=== PATIENT | female | born 1980 | race Hispanic/Latino ===

== ENCOUNTER 2016-11-26 21:25 | Emergency (ER) | payer OTHER, SELFPAY ==
[2016-11-26 21:25] VITALS: BMI 22.4
[2016-11-26 21:34] VITALS: BP 111/74; PULSE 87; RESP 16; TEMP 97.9; O2SAT 99
--- NOTE | 2016-11-26 21:52 | C.PDOC ---
History Of Present Illness 35 y/o female 10 weeks presents to ED with complaints of rhinorrhea, congestion and subjective fever since yesterday. Pt is unsure of what medication she can take since she is . Pt denies cough, SOB, vomiting, diarrhea, abdominal pain, or any other complaints. Time Seen by Provider: 11/26/16 21:45 Chief Complaint (Nursing): Cough, Cold, Congestion History Per: Patient History/Exam Limitations: no limitations Onset/Duration Of Symptoms: Hrs, Waxing/Waning Associated Symptoms: Fever, Nasal Congestion. denies: Cough, Vomiting, Diarrhea Severity: Mild Recent travel outside of the [place]: No Past Medical History Reviewed: Historical Data, Nursing Documentation, Vital Signs Vital Signs: Last Vital Signs Temp 97.9 F 11/26/16 21:30 Pulse 87 11/26/16 21:30 Resp 16 11/26/16 21:30 BP 111/74 11/26/16 21:30 Pulse Ox 99 11/26/16 21:56 - Medical History PMH: No Chronic Diseases Surgical History: No Surg Hx Family History: States: Unknown Family Hx - Social History Hx Alcohol Use: No Hx Substance Use: No - Immunization History Hx Tetanus Toxoid Vaccination: No Hx Influenza Vaccination: No Hx Pneumococcal Vaccination: No Review Of Systems Constitutional: Positive for: Fever ENT: Positive for: Nose Discharge, Nose Congestion Respiratory: Negative for: Cough, Shortness of Breath Gastrointestinal: Negative for: Vomiting, Abdominal Pain, Diarrhea Genitourinary: Negative for: Dysuria, Vaginal Bleeding Skin: Negative for: Rash, Bruising Neurological: Negative for: Headache Physical Exam - Physical Exam Appears: Non-toxic, No Acute Distress Skin: Warm, Dry, No Rash Head: Atraumatic, Normacephalic Eye(s): bilateral: Normal Inspection, EOMI Ear(s): Bilateral: Normal Nose: Normal Oral Mucosa: Moist Throat: Normal, No Erythema, No Exudate Neck: Normal, Normal ROM, Supple Chest: Symmetrical Cardiovascular: Rhythm Regular Respiratory: Normal Breath Sounds, No Rales, No Rhonchi, No Wheezing Extremity: Bilateral: Atraumatic, Normal ROM Neurological/Psych: Oriented x3, Normal Speech Gait: Steady ED Course And Treatment O2 Sat by Pulse Oximetry: 99 (room air) Pulse Ox Interpretation: Normal Medical Decision Making Medical Decision Makin35 year old female with complaints of subjective fever and congestion since yesterday. Exam was benign and unremarkable. Recommend decongestant and Tylenol which are safe in . Patient feels comfortable going home and will be discharged. Disposition Counseled Patient/Family Regarding: Need For Followup, Rx Given - Disposition Disposition: HOME/ ROUTINE Disposition Time: 21:50 Condition: STABLE Additional Instructions: You have viral illness which will take couple days to resolve May take Tylenol for any fever Take Claritin or Benadryl for any congestion Prescriptions: Acetaminophen [Tylenol Extra Strength] 500 mg PO Q8 #30 tablet Loratadine [Claritin] 10 mg PO DAILY #30 tab Instructions: Upper Respiratory Infection (ED) Forms: [employer] (Sami) - POA Present On Arrival: None - Clinical Impression Clinical Impression: Viral disease, Upper respiratory infection - PA / LINE PULLER / Resident Statement MD/DO has reviewed & agrees with the documentation as recorded. - Scribe Statement The provider has reviewed the documentation as recorded by the Nazanin Contreras All medical record entries made by the Scribe were at my direction and personally dictated by me. I have reviewed the chart and agree that the record accurately reflects my personal performance of the history, physical exam, medical decision making, and the department course for this patient. I have also personally directed, reviewed, and agree with the discharge instructions and disposition.
== END 2016-11-26 22:24 | disposition home or self-care (01) ==
LOC: C.ER 21:25
DX: J06.9 Acute upper respiratory infection, unspecified (principal); O99.511 Diseases of the respiratory system complicating pregnancy, first trimester; Z3A.10 10 weeks gestation of pregnancy

== ENCOUNTER 2017-04-21 12:56 | Emergency (ER) | payer MEDICAID, OTHER, SELFPAY ==
[2017-04-21] MEDS ORDERED: Betamethasone Soluspan 30 mg/5mL Inj Susp IM ONE (13:27)
--- NOTE | 2017-04-21 13:45 | OBHP ---
Datetime: 04/21/2017 13:41 IP Adm Impression: , intrauterine IP Chief Complaint Other: sent in by pmd short cerivx 0.7cm for steroids Admit Comment, IP Provider: 36 y/o @ 31.5 wks GA by LMP 09/11/16 DOUG 06/18/17 sent by PMD found t o have short cerrvix on US .7cm adn referred by pmd for steriods. pt dneis any pain, cramping bleedin g, leaking, bowel or bladder complaints, vb, lof, +FM Ante: PNC Dr. Howell OB: P0 HHA: denies hx of having pap, denies hx of fibroids, ovarian cyst, STI PMH: Denies PSH: Denies SHX: negative etoh/tobacco/drugs MEDS: pt reprts was on progestone sppostory but stopped using them, pnv ALLERYG: PCN A/P @ 31.5 wks GA with short cervix -f/u UA -NST -Celestone x 1 today, tomorrow for #2, pt ifnormed Plan as per PMD Dr Howell Extremities - PN: Normal Abdomen - PN: Normal Back - PN: Normal Breast - PN: Normal Lungs - PN: Normal Heart - PN: Normal Thyroid - PN: Not Done HEENT - PN: Normal General - PN: Normal FHR - Baseline A Provider: 125 Membranes, Provider: Intact Contraction Comments Provider: none Comments, ACOG Physical Exam: no palpable ctx no bulging memmbrnaes Gestation - Est Wks by US: 31.5 EGA AdmitDate IP: 31.5 IP Chief Complaint: Other NICHD Variability Prov Fetus A: Moderate 6-25bpm FHR Category Provider Fetus A: Category I NICHD Decel Fetus A IP Provider: None Dilatation, Provider: 0 Genitourinary Exam: Normal DTRs - PN: Normal
[2017-04-21 14:27] LABS: RBC URINE 1 /hpf (0-3); URINE BACTERIA RARE (<OCC); URINE BILIRUBIN NEGATIVE (NEGATIVE); URINE BLOOD NEGATIVE (NEGATIVE); URINE COLOR Yellow (YELLOW); URINE GLUCOSE (UA) NORMAL (Normal); URINE KETONE NEGATIVE (NEGATIVE); URINE LEUKOCYTE ESTERASE 3+ Leu/uL (Negative); URINE PROTEIN NEGATIVE (NEGATIVE); URINE UROBILINOGEN NORMAL mg/dL (0.2-1.0); WBC URINE 20 /hpf (0-5)
[2017-04-21 19:14] VITALS: BP 102/63; PULSE 83; TEMP 98.2; O2SAT 99
== END 2017-04-21 14:50 | disposition home or self-care (01) ==
LOC: C.EROB 12:56
DX: O26.893 Other specified pregnancy related conditions, third trimester (principal); Z3A.31 31 weeks gestation of pregnancy
CPT/HCPCS: 81001; 96372; 99283; J0702

== ENCOUNTER 2017-04-22 13:55 | Emergency (ER) | payer OTHER ==
[2017-04-22 14:32] VITALS: BMI 23.9
[2017-04-22] MEDS ORDERED: Betamethasone Soluspan 30 mg/5mL Inj Susp IM ONE (14:32)
--- NOTE | 2017-04-22 15:43 | OBHP ---
Datetime: 04/22/2017 14:35 IP Adm Impression: , intrauterine IP Chief Complaint Other: Celestone #2 IP Adm Impression Other: Shortened cervix. IP Admit Plan: Discharge home Admit Comment, IP Provider: 36 y.o. , LMP 09/11/16, ED 06/18/17, EGA 31s 6d here for second dose of celestone due to shortened cervix 0.7 cm. (+) AFM; denies LOF, VB, Ctx. Not sexuall active x "tue".. care: Dr. 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 x 3 years. Woks in [employer]. - sits most of the day Fam Hx: mother alive 62 - no med ssues. Father alive 62y.o. HTN. Assessment: 36 y.o. P0, 31w 6d, shortened cervix, completing course of steroids. Category 1 lalo ng. Clinically stable. Plan: 1) Continue present management 2) Anticipate vaginal delivery Pelvic Type - PN: Not Done Extremities - PN: Normal Abdomen - PN: Normal Back - PN: Normal Breast - PN: Not Done Lungs - PN: Normal Heart - PN: Normal Thyroid - PN: Not Done Neurologic - PN: Normal HEENT - PN: Normal General - PN: Normal FHR - Baseline A Provider: 130 Contraction Comments Provider: none Gestation - Est Wks by US: 31w 6d EGA AdmitDate IP: 31.6 Vital Signs Provider: Reviewed; Within Normal Limits IP Chief Complaint: Other NICHD Variability Prov Fetus A: Moderate 6-25bpm NICHD Accel Fetus A IP Provider: 15X15 FHR Category Provider Fetus A: Category I NICHD Decel Fetus A IP Provider: None Dilatation, Provider: deferred Genitourinary Exam: Not Done DTRs - PN: Not Done
[2017-04-22 19:49] VITALS: BP 97/61; PULSE 92; TEMP 98.4
== END 2017-04-22 15:05 | disposition home or self-care (01) ==
LOC: C.EROB 13:55
DX: O26.893 Other specified pregnancy related conditions, third trimester (principal); Z3A.31 31 weeks gestation of pregnancy
CPT/HCPCS: 96372; 99283; J0702

== ENCOUNTER 2017-06-02 07:26 | Inpatient (IN) | payer MEDICAID, OTHER ==
[2017-06-02] MEDS ORDERED: Sodium Citrate/Citric Acid 15 ml Sol PO ONE (07:58)
[2017-06-02 07:59] VITALS: BMI 24.4
[2017-06-02] MEDS ORDERED: Lactated Ringer's 1,000 ML IV SCH ×3 (08:00→12:30)
[2017-06-02 08:26] LABS: BASO % 0.2 % (0.0-2.0); EOS # 0.1 K/uL (0.0-0.7); EOS % 1.1 % (0.0-4.0); HEMOGLOBIN 11.9 g/dL (11.0-16.0); LYMPH # 1.5 K/uL (1.0-4.3); LYMPH % 17.3 % (20.0-40.0); MEAN CORPUSCULAR HEMOGLOBIN 29.1 pg (27.0-31.0); MONO # 0.7 K/uL (0.0-0.8); MONO % 7.6 % (0.0-10.0); NEUT # 6.4 K/uL (1.8-7.0); NEUT % 73.8 % (50.0-75.0); RBC 4.11 Mil/uL (3.80-5.20); RED CELL DISTRIBUTION WIDTH 14.6 % (11.5-14.5)
[2017-06-02 08:28] LABS: MEAN CELL VOLUME 83.1 fL (81.0-99.0); WHITE BLOOD COUNT 8.7 K/uL (4.8-10.8)
[2017-06-02] MEDS ORDERED: Morphine 1 mg/ml preservative-free Inj(Duramorph) ONE (08:35)
[2017-06-02 08:42] LABS: ALB/GLOB RATIO 1.2 (1.0-2.1); ALBUMIN 3.2 g/dL (3.5-5.0); ALT/SGPT 19 U/L (9-52); AST/SGOT 20 U/L (14-36); BLOOD UREA NITROGEN 5 mg/dL (7-17); CALCIUM 8.6 mg/dl (8.6-10.4); GFR AFRICAN-AMERICAN > 60; GFR NON-AFRICAN AMERICAN > 60
[2017-06-02] MEDS ORDERED: Clindamycin 600mg/50ml D5W 600 MG/50 ML VIAL IVPB SCH (09:00)
[2017-06-02] MEDS ORDERED: Sodium Citrate/Citric Acid 15 ml Sol ONE (09:47)
[2017-06-02] MEDS: Clindamycin 600mg/50ml NS 600 MG/50 ML BAG IVPB SCH ×3 (09:51→21:05)
--- NOTE | 2017-06-02 12:06 | OBDS ---
DELIVERY PERSONNEL Nurse Loop Sewer Certified: N/A Delivery Doctor: Rey Earl MD Scrub Nurse: Ludmila Sandoval OBT Employment Training Specialist: Jacqueline Banerjee RN Anesthesiologist: Adelina Meza MD Physical Therapy Nurse: N/A MATERNAL INFORMATION Delivery Anesthesia: Spinal Medications in Delivery: See Anesthesia Record Placenta Cultured: No Maternal Complications: None RN Comments: Zoe Mantilla (Med. Student); Provider Comments: preop dx: 37.5wk; iugr;breech postop dx: 37.5wks; iugr; unstable lie vtx procedure: primary cd; plac delivered spontaneously surgeon: doe nugent asst: dr catarino alonso student: oralia gilbert anesth: spinal--- dr meza ebl: 800cc no complication neon to nbn pt to rr in satisf condition findings: clear amniotic fluid; viable male; 8_9 wt rodríguez to drainage LABOR SUMMARY EDC: 06/18/2017 00:00 No. Babies in Womb: 1 Attempted: No Labor Anesthesia: None LABOR INFORMATION Reason for Induction: Not Applicable Reason for Induction Other: N/A Other Ripening Agents: N/A Oxytocin: N/A Group B Beta Strep: Positive Steroids Given: None Reason Steroids Not Administered: Not Applicable Other Reason Not Administered: N/A MEMBRANES Membranes Rupture Method: Artificial Rupture of Membranes: 06/02/2017 10:52 Length of Rupture (hrs): 0.02 Amniotic Fluid Color: Clear Amniotic Fluid Amount: Moderate Amniotic Fluid Odor: Normal STAGES OF LABOR Stage 3 hrs: 0 Stage 3 min: 1 CSECTION DELIVERY Primary Indication: Breech Presentation Secondary Indication: Other Other Secondary Indication: IUGR CSection Urgency: Elective CSection Incidence: Primary Labor: N/A Elective: Elective CSection Incision: Lower Uterine Transverse BABY A INFORMATION Delivery Date/Time: 06/02/2017 10:53 Method of Delivery: Born in Route : No : N/A Forceps: N/A Vacuum Extraction: N/A Shoulder Dystocia : No SHOULDER DYSTOCIA BABY A Infant Delivery Date/Time: 06/02/2017 10:53 PRESENTATION/POSITION BABY A Presentation: Breech Cephalic Presentation: N/A Breech Presentation: Complete PLACENTA INFORMATION BABY A Placenta Delivery Time : 06/02/2017 10:54 Placenta Method of Delivery: Manual Removal Placenta Status: Delivered SCORES BABY A Heart Rate 1 min: >100 bpm Resp Effort 1 min: Slow, Irregular Reflex Irritability 1 min: Cough or Sneeze or Pulls Away Muscle Tone 1 min: Active Motion Color 1 min: Body [place], Extremities Blue Resuscitation Effort 1 min: Tactile Stimulation; Oxygen; PPV/NCPAP SCORE 1 MIN: 8 Heart Rate 5 min: >100 bpm Resp Effort 5 min: Good Cry Reflex Irritability 5 min: Cough or Sneeze or Pulls Away Muscle Tone 5 min: Active Motion Color 5 min: Body [place], Extremities Blue Resuscitation Effort 5 min: N/A SCORE 5 MIN: 9 INFORMATION BABY A Gestational Age at Delivery: 37.5 Gestational Status: Term Infant Outcome : Liveborn Infant Condition : Stable Sex: Male IDENTIFICATION/MEDS BABY A ID Band Number: [id number] ID Band Location: Left Leg; Left Arm Sensor Applied: Yes Sensor Number: [id number] Sensor Location : Cord Clamp WEIGHT/LENGTH BABY A Infant Birthweight (gms): 2735 Infant Weight (lb): 6 Infant Weight (oz): 0 Length Inches: 18.50 Infant Length cms: 47.0 CORD INFORMATION BABY A No. Cord Vessels: 3 Nuchal Cord : N/A Cord Blood Taken: Yes Suction: Mouth; Nose ASSESSMENT BABY A Infant Complications: None Physical Findings at Delivery: Within Normal Limits Respirations: Grunting; Intercostal Retractions Rate Clerk/ALS Called : Yes Care By: Dr. Flores Transferred To: Nursery
[2017-06-02] MEDS: Simethicone 80 mg Chewtab PO SCH ×3 (16:11→22:13)
[2017-06-03] MEDS: Clindamycin 600mg/50ml NS 600 MG/50 ML BAG IVPB SCH ×3 (03:09→15:55)
[2017-06-03] MEDS: Oxycodone/Acetaminophen 5/325 mg Tab PO PRN ×3 (06:05→22:09)
[2017-06-03 07:56] LABS: BASO % 0.2 % (0.0-2.0); LYMPH # 0.8 K/uL (1.0-4.3); LYMPH % 6.4 % (20.0-40.0); MEAN CELL VOLUME 84.1 fL (81.0-99.0); MEAN CORPUSCULAR HEMOGLOBIN 28.6 pg (27.0-31.0); MEAN PLATELET VOLUME 9.2 fL (7.2-11.7); MONO # 0.5 K/uL (0.0-0.8); MONO % 4.4 % (0.0-10.0); NEUT # 10.7 K/uL (1.8-7.0); PLATELET COUNT 169 K/uL (130-400); RBC 3.33 Mil/uL (3.80-5.20); RED CELL DISTRIBUTION WIDTH 14.8 % (11.5-14.5); WHITE BLOOD COUNT 12.1 K/uL (4.8-10.8)
[2017-06-03 08:01] LABS: HEMOGLOBIN 9.5 g/dL (11.0-16.0)
[2017-06-03] MEDS: Simethicone 80 mg Chewtab PO SCH ×4 (09:37→22:08)
[2017-06-03 10:04] LABS: BANDS 3 % (0-2); LYMPHOCYTE 6 % (20-40); MONOCYTE 6 % (0-10); NEUTROPHIL 85 % (50-75); PLATELET ESTIMATE NORMAL (NORMAL); TOTAL CELLS COUNTED 100
--- NOTE | 2017-06-03 12:13 | OBADHP ---
Datetime: 06/02/2017 12:06 Admit Comment, IP Provider: late entry 36 y.o. , LMP 09/11/16, ED 06/18/17presents for primary cd @ 37.5wk due to IUGR and breech pres entation. denies srom, bleeding or decreased fm. Dr. Thomas recommended Cd prior to or by 38 due to us findings on 06/01 c/w iugr and ac of 1%. Pt had also been followed for shortened cervix pmhx:denies pshx: denies allerg:pcn medic: pnv i: 37.5wk iugr breech p: primary Cd risk, benefits, indic d/wpt. she agrees Pelvic Type - PN: Adequate Extremities - PN: Normal Abdomen - PN: Normal Lungs - PN: Normal Heart - PN: Normal Neurologic - PN: Normal HEENT - PN: Normal General - PN: Normal FHR - Baseline A Provider: 120 IP Chief Complaint: Scheduled Section NICHD Variability Prov Fetus A: Moderate 6-25bpm NICHD Accel Fetus A IP Provider: 15X15 FHR Category Provider Fetus A: Category I Genitourinary Exam: Normal EGA AdmitDate IP: 37.5 IP Adm Impression: Term, intrauterine IP Admit Plan: Admit to unit; Initiate Section protocol Datetime: 04/22/2017 14:35 IP Chief Complaint Other: Celestone #2 IP Adm Impression Other: Shortened cervix. Back - PN: Normal Breast - PN: Not Done Thyroid - PN: Not Done Contraction Comments Provider: none Gestation - Est Wks by US: 31w 6d Vital Signs Provider: Reviewed; Within Normal Limits NICHD Decel Fetus A IP Provider: None Dilatation, Provider: deferred DTRs - PN: Not Done Datetime: 04/21/2017 13:41 Membranes, Provider: Intact Comments, ACOG Physical Exam: no palpable ctx no bulging memmbrnaes
[2017-06-04] MEDS: Oxycodone/Acetaminophen 5/325 mg Tab PO PRN ×4 (06:51→21:16)
[2017-06-04 08:27] LABS: BASO % 0.4 % (0.0-2.0); EOS # 0.1 K/uL (0.0-0.7); EOS % 1.1 % (0.0-4.0); HEMOGLOBIN 8.8 g/dL (11.0-16.0); LYMPH # 1.7 K/uL (1.0-4.3); LYMPH % 13.7 % (20.0-40.0); MEAN CELL VOLUME 83.2 fL (81.0-99.0); MEAN CORPUSCULAR HEMOGLOBIN 29.1 pg (27.0-31.0); MEAN PLATELET VOLUME 9.2 fL (7.2-11.7); NEUT # 9.3 K/uL (1.8-7.0); NEUT % 76.8 % (50.0-75.0); NRBC % 0.1 % (0.0-2.0); RBC 3.02 Mil/uL (3.80-5.20); RED CELL DISTRIBUTION WIDTH 14.9 % (11.5-14.5); WHITE BLOOD COUNT 12.2 K/uL (4.8-10.8)
[2017-06-04] MEDS: Simethicone 80 mg Chewtab PO SCH ×4 (09:43→22:47)
--- NOTE | 2017-06-04 18:43 | OBPPN ---
Datetime: 06/04/2017 18:27 PP Pain Prov: Within normal limits PP Nausea Prov: Denies PP Flatus Prov: No PP BM Prov: No PP Breasts Prov: Normal PP Heart Prov: Normal PP Lungs Prov: Normal PP Abdomen/Uterus Prov: Normal PP Lochia Prov: Normal PP Vulva/Perineum Prov: Not Done PP CVA Tenderness Prov: Normal PP Extremities Prov: Abnormal PP C/S Incision Prov: Normal PP Progress Prov: Normal PP Comments Phys Exam Prov: Abdomen: Soft. (+)BS. Fundus firm, mobile, minimal and appropriate tende rness, 1 FB below umbilicus. Mild lochia rubra Extremities: 2+ pitting lowerextremity edema, bilateraly. No calf tenderness. All other systems reviewed and are negative PP Impression Prov: Normal progression PP Plan Prov: Continue present management PP Progress Note Prov: Patient received in bed, room 460: a bit tired. Attempting to breastfeed. A mbulated out of room x 2 earlier today. Denies nause, vomiting. Denies flatus or BM. Desires circumc ision for son. Incisional pain max 8/10; relieved with pain meds - then 1/10. P.E.: as above. Petite in NAD. Awake, alert, oriented to time, person and place. Pleasant and fundraising coordinator perative. - POD#2 H/H 8.8/25.1 Assessment: POD#2 36 y.o. P1, S/P primary LTCS for IUGR, Breech presentation. Afebrile, vital sig ns stable. Acute blood loss anemia - H/H stable. Returning GI and functions. Consent obtained fo r circumcision. Patinte is clinically stable. Plan: 1) Continue post opmanagement 2) Anticipate discharge home 06/05/17 Vital Signs Provider PP: Reviewed; Within Normal Limits
[2017-06-05] MEDS: Oxycodone/Acetaminophen 5/325 mg Tab PO PRN (06:31)
[2017-06-05 08:04] VITALS: BP 99/68; PULSE 88; O2SAT 97
--- NOTE | 2017-06-05 14:29 | OBDCSUM ---
Datetime: 06/05/2017 11:59 Discharged to, Provider: Home Follow up at, Provider: Dr Smith Disch Instr Activity: Normal activity Disch Instr Diet: Regular Discharge Diagnosis, Provider: Term Delivered Discharge Time: 06/05/2017 12:00 Follow up in weeks, Provider: 06/08/2017 Disch Referrals: None Contraception discussed, Prov: Yes Disch Activity Restrictions: No exercising; No lifting; No sexual activity; Nothing in vagina - Inte rcourse, tampons, douche Discharge Diagnosis Prov Other: IUGR Breech presentation Advanced maternal age Acute blood loss anemia Contraception counseling Contraception after Delivery: Undecided
--- NOTE | 2017-06-05 18:38 | OBPPN ---
Datetime: 06/03/2017 11:17 PP Pain Prov: Within normal limits PP Nausea Prov: Denies PP Flatus Prov: No PP BM Prov: No PP Breasts Prov: Normal PP Heart Prov: Normal PP Lungs Prov: Normal PP Abdomen/Uterus Prov: Normal PP Lochia Prov: Normal PP Vulva/Perineum Prov: Not Done PP CVA Tenderness Prov: Normal PP Extremities Prov: Normal PP C/S Incision Prov: Normal PP Progress Prov: Normal PP Comments Phys Exam Prov: Adbomen: softly distended. Hypoactive BS. Dressing clean and intact. Samuel ssing removed; incision with subcuticular closure - clean, cry and intact. Moderate lochia rubra Extremities: mild bilateral pedal edema, bilaterally. No calf tenderness. All other systems reviewed and are negative PP Impression Prov: Normal progression PP Plan Prov: Continue present management PP Progress Note Prov: Late entry: patient seen 06/03/17 apparoximately 115 hours. Patient was received in room 460, sitting up in chair; present. Reports abdominal pain/inc isional pain 8/10, improved with percocet. Has ambulated twice out of the room since delivery. Denie s headache, dizziness, nausea, vomiting, flatus or BM. Attempting to breastfeed. P.E.: as above. Petite, in NAD. Awake, aleart, oriented to time, person and place. Pleasant and c ooperative. - POD#1 H/H 9.5/28, down from 11.9/34.1. Rh(+) Assessment: POD#1, 36 y.o. P1, S/P primary LTCS for IUGR and Breech presentation. Returning GI an d functions. Acute blood loss anemia noted. Patient is asymptomatic and hemodynamically stable. P atient is clinically stable. Plan: 1) continue present management 2) Start iron BID 3) Encourage ambulation Vital Signs Provider PP: Reviewed
[2017-06-05 19:32] VITALS: RESP 18; TEMP 97.8
--- NOTE | 2017-06-06 01:27 | OP ---
PROCEDURE DATE: PREOPERATIVE DIAGNOSES: 1. 37.5-week gestation. 2. Intrauterine growth restriction. 3. Breech presentation. POSTOPERATIVE DIAGNOSES: 1. 37.5-week gestation. 2. Intrauterine growth restriction. 3. Unstable lie with vertex presentation. PROCEDURE: Primary section, low transverse. SURGEON: Modesto Smith MD. LEAF SIZE PICKER: Ambrocio Benitez MD. SECOND CHIEF NURSING EXECUTIVE: Medical student, Arpan Fountain. TYPE OF ANESTHESIA: Spinal. ANESTHESIOLOGIST: Dr. Finn. ESTIMATED BLOOD LOSS: 800 mL. COMPLICATIONS: None. DISPOSITION: The patient to recovery room in satisfactory condition, to nursery. FINDINGS: Show clear amniotic fluid, viable male with Apgars of 8 and 9 and weight of 6 pounds. INDICATION: The patient is a 36-year-old female, 1 with EDC of 06/18/2017 who presented at 37.5 weeks for delivery secondary to intrauterine growth restriction and recommendation of Maternal- Medicine. She was noted to be in breech presentation, so therefore presented for a section. An informed consent was obtained for section and early delivery of baby. Indications were discussed with the patient, risks, benefits and she agreed with planned procedure. DESCRIPTION OF PROCEDURE: The patient was taken to the OR where she underwent spinal anesthesia. She was then placed in the dorsal supine position with the leftward tilt and prepped and draped in the routine sterile fashion. A Pfannenstiel skin incision was made. The incision was then extended down to the inferior rectus fascia which was incised in the midline and extended bilaterally. The inferior rectus fascial edge was grasped with Leticia's and the underlying rectus muscle was dissected off. Same procedure was performed along the superior rectal fascial edge. The peritoneum was identified, tilted upward and incised superiorly and inferiorly. The bladder plate was placed and a bladder flap created using sharp and blunt dissection. A low uterine transverse incision was made with the scalpel and the uterine cavity entered bluntly. The uterine incision was extended laterally and in the cephalocaudal manner. The amniotic membrane was ruptured. At the time of delivery the baby was noted to be vertex and delivered in the routine fashion. Mouth and nares were suctioned. The cord was clamped and cut and the baby was handed off to the awaiting blow moulding machine operator. Cord blood was collected. Placenta was delivered spontaneously and intact. The uterus was exteriorized and cleared of all clots and debris. The uterine incision was reapproximated with 0 Vicryl in running fashion followed by an imbricated stitch. The abdomen was irrigated and cleared of all clots and debris. The uterus was returned to the abdomen and reinspected good hemostasis confirmed. The pelvic cavity was irrigated and cleared of clots and debris. The peritoneum was reapproximated with 2-0 Vicryl in a running fashion. The muscle was reapproximated with 2-0 Vicryl in a running fashion. The fascia was approximated with 0 Vicryl in a running fashion beginning right lateral conicoid to midline another stitch beginning left lateral conicoid to midline. The wound was irrigated. Good hemostasis confirmed. The subcutaneous tissue was reapproximated with 2-0 plain in simple interrupted fashion. The skin was reapproximated with 4-0 Vicryl and a 0 Joel needle. All sponge, lap and needle counts were correct. The patient returned to recovery room in satisfactory condition. Modesto Smith MD
== END 2017-06-05 15:25 | disposition home or self-care (01) | DRG 370 ==
LOC: C.EROB 07:26 → C.4D 07:35 → C.4M 15:10
PROVIDERS: ADMIT Obstetrics & Gynecology; ATTEND Obstetrics & Gynecology
PROC: 10D00Z1 Extraction of Products of Conception, Low, Open Approach (ICD-10-PCS; principal; 2017-06-02)
DX: O36.5930 Maternal care for other known or suspected poor fetal growth, third trimester, not applicable or unspecified (principal); D62 Acute posthemorrhagic anemia; O26.873 Cervical shortening, third trimester; O99.02 Anemia complicating childbirth; O32.0XX0 Maternal care for unstable lie, not applicable or unspecified; O32.1XX0 Maternal care for breech presentation, not applicable or unspecified; Z37.0 Single live birth; Z3A.37 37 weeks gestation of pregnancy

== ENCOUNTER 2018-05-05 15:08 | Emergency (ER) | payer MEDICAID, OTHER ==
[2018-05-05 15:08] VITALS: BMI 24.4
[2018-05-05 15:14] VITALS: BP 136/78; PULSE 87; RESP 20; TEMP 98.2; O2SAT 99
--- NOTE | 2018-05-05 16:23 | C.PDOC ---
History Of Present Illness 37 year old female presents to the emergency department with complaints of several nosebleeds per day lasting a few minutes with no preceding trauma or irritation to the nose. Patient denies using aspirin or blood thinners. She denies history of bleeding disorders, history of bleeding from other areas, and history of bruising. Patient denies active bleeding while in the ED. Time Seen by Provider: 05/05/18 16:02 Chief Complaint (Nursing): ENT Problem History Per: Patient History/Exam Limitations: None Onset/Duration Of Symptoms: Days Current Symptoms Are (Timing): Still Present Past Medical History Reviewed: Historical Data, Nursing Documentation, Vital Signs Vital Signs: Last Vital Signs Temp 98.2 F 05/05/18 15:10 Pulse 87 05/05/18 15:10 Resp 20 05/05/18 15:10 BP 136/78 05/05/18 15:10 Pulse Ox 99 05/05/18 15:10 - Medical History PMH: No Chronic Diseases Denies: Depression, Diabetes, HTN Surgical History: No Surg Hx - [facility] Procedures EXTRACTION OF POC, LOW CERVICAL, OPEN APPROACH (06/02/17) Family History: States: No Known Family Hx - Social History Hx Alcohol Use: No Hx Substance Use: No - Immunization History Hx Tetanus Toxoid Vaccination: No Hx Influenza Vaccination: No Hx Pneumococcal Vaccination: No Review Of Systems Constitutional: Negative for: Fever, Chills ENT: Positive for: Nose Discharge (epistaxis) Respiratory: Negative for: Cough Gastrointestinal: Negative for: Nausea, Vomiting, Diarrhea Physical Exam - Physical Exam Appears: Non-toxic, No Acute Distress Skin: Normal Color, Warm, Dry Head: Atraumatic, Normacephalic Eye(s): bilateral: Normal Inspection, PERRL, EOMI Ear(s): Bilateral: Normal Nose: Normal, No Discharge, No Epistaxis Oral Mucosa: Moist Neck: Supple Chest: Symmetrical Neurological/Psych: Oriented x3, Normal Speech, Normal Cognition ED Course And Treatment O2 Sat by Pulse Oximetry: 99 (RA) Pulse Ox Interpretation: Normal Medical Decision Making Medical Decision Making: Plan: Use of nasal cleaning solution recommended to patient. Patient instructed to f/u with medical clinic. Patient warned regarding picking nose or heavy blowing. Disposition Counseled Patient/Family Regarding: Diagnosis, Need For Followup - Disposition Referrals: [facility] [Outside] Juan Dodson MD [Staff Provider] - Disposition: HOME/ ROUTINE Disposition Time: 16:21 Condition: GOOD Additional Instructions: No nose picking or heavy nose blowing. Use nasal saline 2-3 times per day. Avoid motrin, aleve, advil,. naproxen, ibuprofen and aspirin. Follow up in medical clinic and with ENT (ear/nose/throat) doctors- call for appointments. Return to ER for bruising, prolonged bleeing form nose or any other concerns. Prescriptions: Sodium Chloride [[place] Saline] 50 ml NS TID #1 spray Instructions: Nosebleeds (DC) Forms: [employer] (Maltese), General Discharge Instructions - Clinical Impression Clinical Impression: Epistaxis - PA / DESIGN ENGINEER PRODUCTS / Resident Statement MD/DO has reviewed & agrees with the documentation as recorded. - Scribe Statement The provider has reviewed the documentation as recorded by the Scribe (Bj Vides) All medical record entries made by the Scribe were at my direction and personally dictated by me. I have reviewed the chart and agree that the record accurately reflects my personal performance of the history, physical exam, medical decision making, and the department course for this patient. I have also personally directed, reviewed, and agree with the discharge instructions and disposition.
== END 2018-05-05 16:40 | disposition home or self-care (01) ==
LOC: C.ER 15:08
DX: R04.0 Epistaxis (principal)